=== PATIENT | female | born 1965 | race African-American/Black ===

== ENCOUNTER 2017-05-13 01:20 | Observation (INO) | payer OTHER ==
[2017-05-13] MEDS ORDERED: Furosemide IV* 10 MG/ML VIAL (40 MG) IV ONE (01:52)
[2017-05-13] MEDS ORDERED: Nitroglycerin 2% OINT* 1 GM PAK TOPICAL ONE (01:53)
[2017-05-13 03:06] LABS: Hematocrit 38 % (35-47); Hemoglobin 13.2 g/dl (12.0-16.0); Mean Corpuscular HGB Conc 35 g/dl (31-36); Mean Corpuscular Hemoglobin 29 pg (27-31); Mean Corpuscular Volume 84 fL (80-97); Mean Platelet Volume 8 um3 (7.4-10.4); Red Blood Count 4.55 10^6/ul (4.0-5.4); Red Cell Distribution Width 14 % (10.5-15); White Blood Count 5.3 10^3/ul (3.5-10.8)
[2017-05-13 03:33] LABS: Albumin 3.1 g/dL (3.2-5.2); BUN/Creatinine Ratio 21.4 (8-20); Calcium 8.6 mg/dL (8.6-10.3); EGFR African American 71.8 (>60); EGFR Non-African American 55.8 (>60); Globulin 2.6 g/dL (2-4); Potassium 3.8 mmol/L (3.5-5.0); Total Bilirubin 0.6 mg/dL (0.2-1.0); Total Protein 5.7 g/dL (6.4-8.9)
[2017-05-13 03:34] LABS: Troponin I 0.04 ng/mL (<0.04)
[2017-05-13] MEDS ORDERED: amLODIPine TAB* 5 MG PO ONE (03:40)
[2017-05-13] MEDS ORDERED: hydrALAZINE IV* 20 MG/ML VIAL IV SLOW PU PRN (03:40)
[2017-05-13] MEDS ORDERED: Metoprolol Tartrate TAB* 50 mg PO ONE (03:40)
[2017-05-13] MEDS ORDERED: Albuterol HFA INHALER* 8 gm MDI INH PRN (03:42)
[2017-05-13] MEDS: Nitroglycerin 2% OINT* 1 GM PAK TOPICAL SCH ×2 (05:22→15:26)
[2017-05-13] MEDS: Heparin VIAL(*) 5000 UNITS/ML VIAL (FIVE THOUSAND) SUBCUT SCH ×3 (05:38→20:02)
--- NOTE | 2017-05-13 06:13 | HP ---
CC: Dr. Muller; Dr. Sawant, Cardiology * HISTORY AND PHYSICAL: DATE OF ADMISSION: 05/13/17 PRIMARY CARE PROVIDER: Dr. Muller. CHIEF COMPLAINT: Shortness of breath. HISTORY OF PRESENT ILLNESS: Delores Cary is a 52-year-old female with history of uncontrolled hypertension and diastolic CHF, as well as EF of 45%, who presents complaining of shortness of breath for 2 days. The patient also complains of paroxysmal nocturnal dyspnea. She states that she is on a cardiac diet. She denies using any caffeine. She states that she uses her blood pressure medications as prescribed. The patient's brain natriuretic peptide is 1600. It appears that her baseline is approximately 1200 or so. Her systolic pressures were in the 200s despite 2 inches of nitroglycerin received in the emergency department. She is going to be placed on observation with a diagnosis of CHF, which is acute diastolic, and uncontrolled hypertension. PAST MEDICAL HISTORY: 1. 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 2. History of mitral valve regurgitation. 3. 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 4. Hypertension. 5. Anemia. 6. History of diastolic CHF with EF of 45% documented on echocardiogram in August of 2016. 7. History of first-degree AV block. 8. Sickle cell trait. MEDICATIONS: Include: 1. Norvasc 10 mg daily. 2. Lopressor 50 mg b.i.d. 3. Hydralazine 50 mg 3 times a day. 4. Hydrochlorothiazide 25 mg daily. 5. Senna 8.6 mg on a p.r.n. basis. 6. Colace 100 mg b.i.d. p.r.n. 7. Albuterol 2 inhalations every 4 hours p.r.n. shortness of breath. ALLERGIES: PENICILLIN causes rash. FAMILY HISTORY: Mother with asthma and hypertension. SOCIAL HISTORY: The patient quit smoking tobacco 9 years ago. She drinks alcohol occasionally. She denies any drug use. She is currently on SSI. Her mother, Adelaida, is her surrogate. The patient lives alone. REVIEW OF SYSTEMS: Please see history of present illness. All the remaining 12 systems were reviewed with the patient and were otherwise negative. PHYSICAL EXAMINATION GENERAL: This is a very pleasant 52-year-old female who is in no acute distress. Alert, awake, and oriented x3. VITAL SIGNS: Blood pressure of 205/95, heart rate of 84 and regular, respiratory rate 18, oxygen saturation 98% on room air, temperature of 97.8. HEENT: Head: Atraumatic, normocephalic. Eyes: Pupils are equal, reactive to light and accommodation. Oropharynx clear. Mucosa moist. NECK: Supple. Positive for JVD bilaterally. No bruit bilaterally. RESPIRATORY: Crackles at bilateral bases, otherwise clear. CARDIOVASCULAR: Regular rate and rhythm with 2/6 systolic ejection murmur on auscultation of the apex. ABDOMEN: Soft, nontender. Bowel sounds present in all 4 quadrants. EXTREMITIES: There is trace pedal edema bilaterally. Pulses +2 bilaterally. There is no clubbing or cyanosis. NEURO: Speech clear. Cranial nerves II through XII grossly intact. Motor strength is 5/5 bilaterally. SKIN: No ecchymotic areas or rashes noted. DIAGNOSTIC STUDIES/LAB DATA: Performed in the emergency room included: Chest x-ray reviewed by myself shows cardiomegaly and vascular congestion. No infiltrates visualized. The patient's EKG showed normal sinus rhythm with heart rate of 76 beats per minute with left atrial enlargement and LVH criteria, as well as first-degree AV block. Comparing with an EKG from over a year ago, on 05/11/16, the patient' s heart rate was at that point slow, but her diffuse negative T waves noted on today's echocardiogram are unchanged. Sodium was 139, potassium 3.8, chloride 110, carbon dioxide 22, BUN 22, creatinine 1.03. Liver function tests were unremarkable. Troponin was 0.04. Brain natriuretic peptide was 1674. White blood cell count of 5.3, hemoglobin 13.2, hematocrit of 38, and platelets of 205. ASSESSMENT AND PLAN: 1. A 52-year-old female with history of uncontrolled hypertension, who presents with uncontrolled hypertension, again in congestive heart failure due to that. The patient is going to be admitted with a diagnosis of diastolic congestive heart failure due to hypertensive emergency. The patient is going to be placed on observation on telemetry monitored bed. She would use 40 mg of IV Lasix and she is going to receive another 20. Daily weights due to her congestive heart failure are going to be obtained. I will treat the patient with oral medications as well as nitroglycerin. She is going to receive an additional dose of metoprolol, Norvasc, and placed on hydralazine intravenously on a p.r.n. basis. 2. The patient's indeterminate troponin is most likely due to left ventricular strain. The patient denies chest pain. We will follow up with repeat troponin. 3. For the patient's asthma, which is not in exacerbation, albuterol is going to be provided on an as needed basis. 4. For DVT prophylaxis, the patient is at moderate risk for DVT and heparin is going to be provided. 5. The patient's code status is full and her surrogate is her mother. TIME SPENT: Approximately 62 minutes was spent on admission of this patient. More than half of that time was spent [id number] with the patient during the interview and physical exam. [id number]/[facility] #: [id number] MALIK
[2017-05-13] MEDS: Metoprolol Tartrate TAB* 50 mg PO SCH ×2 (08:51→20:02)
[2017-05-13] MEDS: Docusate CAP* 100 MG PO SCH ×2 (08:51→20:03)
[2017-05-13] MEDS: amLODIPine TAB* 5 MG PO SCH (08:51)
[2017-05-13] MEDS: hydrALAZINE TAB* 25 MG PO SCH ×2 (08:51→20:03)
[2017-05-13] MEDS: Hydrochlorothiazide TAB* 25 MG PO SCH (08:51)
[2017-05-13] MEDS ORDERED: Furosemide IV* 10 MG/ML 2 ML VIAL (20 MG) IV ONE (09:00)
--- NOTE | 2017-05-13 13:01 | RAD ---
INDICATION: Short of breath COMPARISON: May 11, 2016 TECHNIQUE: PA and lateral dual-energy views were obtained. FINDINGS: Bones/Soft Tissues: There are no acute bony findings. There is sternotomy Cardiomediastinal: The cardiac silhouette remains enlarged. There is mild interstitial prominence likely related to interstitial edema Lungs: There are no infiltrates. Pleura: There are no pleural effusions. Other: None IMPRESSION: ENLARGED CARDIAC SILHOUETTE WITH SUSPECTED MILD INTERSTITIAL EDEMA
[2017-05-13] MEDS: Acetaminophen TAB* 325 MG PO PRN ×2 (14:45→20:03)
[2017-05-13 16:06] LABS: BUN/Creatinine Ratio 18.3 (8-20); Calcium 9.3 mg/dL (8.6-10.3); EGFR African American 63.2 (>60); EGFR Non-African American 49.2 (>60); Potassium 3.5 mmol/L (3.5-5.0)
--- NOTE | 2017-05-13 16:50 | PN ---
Hospitalist Progress Note Date of Service: 05/13/17 HOSPITALIST ADDENDUM Mrs. Cary is a 52yo F with PMH of malignant HTN, aortic dissection and repair in 2008, TIA, hemorrhagic CVA, HTN, diastolic CHF with EF 55-60% in 2016, sickle cell trait, who presented to ED with c/o shortness of breath, found to have CHF exacerbation and hypertensive emergency. BP is better controlled today and she's responding to diuresis. Continue current management. Will check echo.
[2017-05-13] MEDS: Potassium Chlor TAB* 20 MEQ TAB.ER PO SCH ×2 (17:26→20:02)
[2017-05-14] MEDS: Nitroglycerin 2% OINT* 1 GM PAK TOPICAL SCH (06:26)
[2017-05-14 06:33] LABS: Hematocrit 43 % (35-47); Hemoglobin 15.1 g/dl (12.0-16.0); Mean Corpuscular HGB Conc 35 g/dl (31-36); Mean Corpuscular Hemoglobin 29 pg (27-31); Mean Corpuscular Volume 84 fL (80-97); Mean Platelet Volume 8 um3 (7.4-10.4); Red Blood Count 5.15 10^6/ul (4.0-5.4); Red Cell Distribution Width 14 % (10.5-15); White Blood Count 5.9 10^3/ul (3.5-10.8)
[2017-05-14] MEDS: Heparin VIAL(*) 5000 UNITS/ML VIAL (FIVE THOUSAND) SUBCUT SCH (06:38)
[2017-05-14 06:47] LABS: BUN/Creatinine Ratio 17.6 (8-20); Calcium 9.1 mg/dL (8.6-10.3); EGFR Non-African American 52.9 (>60); Potassium 4.2 mmol/L (3.5-5.0)
[2017-05-14 07:25] VITALS: BP 171/73
[2017-05-14] MEDS: Hydrochlorothiazide TAB* 25 MG PO SCH (09:43)
[2017-05-14] MEDS: amLODIPine TAB* 5 MG PO SCH (09:43)
[2017-05-14] MEDS: hydrALAZINE TAB* 25 MG PO SCH (09:43)
[2017-05-14] MEDS: Metoprolol Tartrate TAB* 50 mg PO SCH (09:44)
[2017-05-14] MEDS: Docusate CAP* 100 MG PO SCH (09:47)
--- NOTE | 2017-05-14 10:13 | ECHO ---
Patient: TREVON WILKS [facility] Rec#: [id number] : 1965 Date: 05/14/2017 Age: 52y Height: 162.6 cm / 64.0 in Weight: 66.7 kg / 147.0 lbs Sex: F BSA: 1.72 Room#: 453 Admit Date#: 05/13/2017 Type: Inpatient Referring: Sabina Sauceda MD Reading: Baldomero Shrestha MD [employer]oultry [employer] Manager: Eneida Kunz RN RDCS CC: Alex Sawant MD CC: Virgil Muller MD Transthoracic Echocardiogram Indication: CHF BP: 175/69 HR: 66 Rhythm: NSR Findings History: Malignant HTN, aortic arch dissection S/P repair 2008, diastolic CHF, CVA, TIA, asthma, former smoker Technical Comments: The study quality is good. Completed at 0935. Left Ventricle: The left ventricular chamber size is mildly dilated. Moderate to severe concentric left ventricular hypertrophy is observed. There is diffuse global hypokinesis of the left ventricle. There is mildly decreased left ventricular systolic function. The estimated ejection fraction is 45-50%. Abnormal left ventricular diastolic function is observed. The left ventricular diastolic filling pattern is consistent with pseudonormalization. The patient was unable to perform a Valsalva maneuver. Left Atrium: The left atrium is severely dilated. Right Ventricle: The right ventricle wall thickness is mildly increased. The right ventricular cavity size is normal. The right ventricular global systolic function is mildly to moderately reduced. Right Atrium: The right atrium is moderately dilated. Aortic Valve: The aortic valve is trileaflet. The aortic valve leaflets are mildly thickened. There is aortic annular calcification. There is moderate to severe aortic regurgitation. Reversal in the aorta c/w severe AI. There is mild aortic stenosis. The mean gradient of the aortic valve is 10.3 mmHg. The peak instantaneous gradient of the aortic valve is 20 mmHg. The aortic valve area, by peak velocities, is calculated at 1.7 cm2. The aortic valve area, by VTI's, is calculated at 1.8 cm2. The measured aortic regurgitation pressure half-time is 295 msec. Mitral Valve: The mitral valve leaflets are mildly thickened. There is moderate mitral regurgitation. There is no evidence of mitral stenosis. Tricuspid Valve: The tricuspid valve leaflets are normal. There is trace to mild tricuspid regurgitation. No pulmonary hypertension is noted. There is no tricuspid stenosis. Pulmonic Valve: The pulmonic valve appears normal. There is a trace pulmonic regurgitation. There is no pulmonic stenosis. Pericardium: There is no significant pericardial effusion. Aorta: There is no dilatation of the ascending aorta. There is no dilatation of the aortic arch. There is no dilation of the aortic root. Pulmonary Artery: The main pulmonary artery appears normal. Venous: The inferior vena cava appears normal in size. There is a greater than 50% respiratory change in the inferior vena cava dimension. Conclusions The left ventricular chamber size is mildly dilated. Moderate to severe concentric left ventricular hypertrophy is observed. There is diffuse global hypokinesis of the left ventricle. There is mildly decreased left ventricular systolic function. The estimated ejection fraction is 45-50%. The left ventricular diastolic filling pattern is consistent with pseudonormalization. The right ventricle wall thickness is mildly increased. The right ventricular global systolic function is mildly to moderately reduced. The right atrium is moderately dilated. The aortic valve leaflets are mildly thickened. There is moderate to severe aortic regurgitation. Reversal in the aorta c/w severe AI. There is mild aortic stenosis. There is moderate mitral regurgitation. There is trace to mild tricuspid regurgitation. Similar to 08/2016 except that the AI was reported as moderate (with similar doppler valvues). Measurements Name Value Normal Range RVIDd (AP) 2D 2.3 cm (0.9 - 2.6) RVDdMajor (2D) 3 cm (2.2 - 4.4) IVSd (2D) 1.9 cm (0.6 - 1) LVPWd (2D) 1.9 cm (0.6 - 1) LVIDd (2D) 5.9 cm (3.6 - 5.4) LVIDs (2D) 4.5 cm - LV FS (2D) 24 % (25 - 45) Aortic Annulus 2.2 cm (1.4 - 2.6) Ao root diameter (2D) 3.1 cm (2.1 - 3.5) Ascending Ao 3.1 cm (2.1 - 3.4) Aortic arch 2.2 cm (1.8 - 3.4) LA dimension (AP) 2D 4.2 cm (2.3 - 3.8) LAd ISD 4CH 7.5 cm (2.9 - 5.3) LA ISD 4CH W 5 cm (2.5 - 4.5) Name Value Normal Range LA ESV SP 4CH (A/L) 104 ml - LA ESV SP 2CH (A/L) 94 ml - LA ESV BP (A/L) 102 ml - LA ESV BP (A/L) index 60 ml/m2 - LA ESV SP 4CH (MOD) 99 ml - LA ESV SP 2CH (MOD) 92 ml - Name Value Normal Range MV E-wave Vmax 1 m/sec - MV deceleration time 252 msec - MV A-wave Vmax 0.46 m/sec - MV E:A ratio 2.2 ratio - LV septal e' Vmax 0.04 m/sec - LV lateral e' Vmax 0.09 m/sec - LV E:e' septal ratio 25 ratio - LV E:e' lateral ratio 11.1 ratio - Name Value Normal Range AV Vmax 2.2 m/sec - AV VTI 42.8 cm - AV peak gradient 20 mmHg - AV mean gradient 10.3 mmHg - LVOT diameter 2 cm - LVOT Vmax 1.2 m/sec - LVOT VTI 24.3 cm - LVOT peak gradient 5.8 mmHg - LVOT mean gradient 3 mmHg - DOI (VTI) 0.57 ratio - DOI (Vmax) 0.55 ratio - SV LVOT 76.3 ml - CO LVOT 5 l/min - Cardiac index 2.9 l/min/m2 - GIA (continuity Vmax) 1.7 cm2 - GIA (continuity VTI) 1.8 cm2 - AR PHT 295 msec - MARINA Vmax 1.2 m/sec - Name Value Normal Range MR Vmax 5.71 m/sec - MR VTI 228.5 cm - MR volume (PISA) 52.6 ml - MR flow (PISA) 128.6 ml/sec - MR ERO 0.23 cm2 - MR PISA radius 0.8 cm - MR alias Vmax 32 cm/sec - Name Value Normal Range TR Vmax 2.5 m/sec - TR peak gradient 25 mmHg - RAP 3 mmHg - RVSP 28 mmHg - Name Value Normal Range PV Vmax 0.85 m/sec -
--- NOTE | 2017-05-15 05:53 | DS ---
CC: Dr. Muller; Dr. Sawant DISCHARGE SUMMARY: DATE OF ADMISSION: 05/13/17 DATE OF DISCHARGE: 05/14/17 PRIMARY CARE PROVIDER: Dr. Muller. ASSEMBLER UTILITY BUILDINGS: Dr. Sawant. DISCHARGE DIAGNOSES: 1. Hypertensive emergency. 2. Acute diastolic congestive heart failure exacerbation. 3. Possible noncompliance. 4. Chronic kidney disease, stage 3. SECONDARY DIAGNOSES: 1. Malignant hypertension. 2. Status post aortic arch dissection and repair in 2008. 3. Mitral valve regurgitation. 4. Transient ischemic attack. 5. Hemorrhagic cerebrovascular accident. 6. Anemia. 7. Diastolic congestive heart failure with ejection fraction of 45%. 8. Sickle cell trait. MEDICATION LIST: 1. Amlodipine 10 mg p.o. daily. 2. Hydralazine 75 mg p.o. in the morning and 50 mg p.o. at bedtime. 3. Losartan 50 mg p.o. daily. 4. Metoprolol tartrate 100 mg p.o. b.i.d. 5. Triamterene/hydrochlorothiazide 37.5/25 mg 1 capsule p.o. daily. HOSPITAL COURSE: Ms. Cary is a 52-year-old lady with past medical history stated above that presen antonio to the emergency room with complaints of shortness of breath for 2 days prior to admission, assoc iated with paroxysmal nocturnal dyspnea. For more details about her presentation, I refer you to her history and physical. On arrival to the emergency room, her blood pressure was 208/95 and her chest x-ray showed enlarged c ardiac silhouette with mild interstitial edema. The patient was admitted to telemetry floor under the impression of hypertensive emergency and conges tive heart failure exacerbation. She was treated with diuretics, nitrates, and her antihypertensives were continued. She had minimally elevated troponin (0.04/0.05) and this was felt to be secondary t o congestive heart failure exacerbation. The patient had a transthoracic echocardiogram that showed the ejection fraction of 45% to 50% with diffuse global hypokinesis of the left ventricle and moderat e-to-severe aortic regurgitation. The only change on this echo when compared to her prior one from [facility] is that at that time the aortic regurgitation was reported as moderate. The patient had improvement of her symptoms. Her blood pressure is better controlled and she is stab le for discharge at this time. Her pharmacy was contacted to obtain her medication list and we were informed that the patient has no t picked up her medications since January, but when I asked the patient she states that her medicat ions were delivered and she has been taking them all. Her PCP should continue to explore her complia nce as I believe she is probably noncompliant and that was the cause of her symptoms on admission. Al though she states that she is taking all her meds, she was not able to tell me the name of any of the m. She is medically stable to be discharged home today. She will follow up with Dr. Muller as tremaine nt. PHYSICAL EXAMINATION: Vital Signs: Temperature 98.6, heart rate is 64, respiratory rate is 16, oxyg en saturation is 97% on room air, blood pressure is 161/74. General: The patient is a pleasant, mid dle-aged lady, lying in bed, in no acute distress. CVS: Normal S1 and S2. Regular rate and rhythm with systolic murmur. Abdomen: Soft. Bowel sounds present. Neuro: She is alert, awake, and orien antonio x3, able to move all 4 extremities. DIET: Heart-healthy diet. ACTIVITY: As tolerated. DISPOSITION: To home. STATUS IN THE HOSPITAL: Observation. Please keep in mind this is a summarized version of this [facility] hospital stay. If you need more information, please feel free to call me at [phone] or pleas e obtain the full medical records. TIME SPENT: Approximately 45 minutes was spent to complete the discharge. [id number]/[facility] #: [id number]
--- NOTE | 2017-05-24 03:00 | ED ---
Eligio Newberry Gabriel, scriblluvia for Lalo Fuentes MD on 05/13/17 at 0152 . Shortness of Breath - HPI Summary HPI Summary: This patient is a 52 year old F BIBA to [facility] with a chief complaint of SOB since 3 days prior. Symptoms aggravated by lying flat. Patient has a history of CHF. - History of Current Complaint Chief Complaint: EDShortnessOfBreath Time Seen by Provider: 05/13/17 01:30 Hx Obtained From: Patient Onset/Duration: Lasting Days - 3, Still Present Timing: Constant Aggrevating Factors: Other - lying flat - Allergy/Home Medications Allergies/Adverse Reactions: Allergies Allergy/AdvReac Type Severity Reaction Status Date / Time Penicillin V Allergy Intermediate Rash Verified 05/13/17 04:18 Home Medications: Home Medications Losartan TAB* [Cozaar TAB*] 50 mg PO DAILY 05/14/17 [History Confirmed 05/14/17] Metoprolol Tartrate TAB* [Lopressor TAB*] 100 mg PO BID 05/14/17 [History Confirmed 05/14/17] Triamterene/HCTZ 37.5-25 MG* [Dyazide CAP*] 1 cap PO DAILY 05/14/17 [History Confirmed 05/14/17] amLODIPine TAB* [Norvasc 5 mg TAB*] 10 mg PO DAILY 05/14/17 [History Confirmed 05/14/17] hydrALAZINE TAB* [Apresoline TAB*] 75 mg PO DAILY 05/14/17 [History Confirmed ] PMH/Surg Hx/FS Hx/Imm Hx Previously Healthy: No Endocrine/Hematology History: Reports: Hx Anemia - in [employer] Denies: Hx Diabetes, Hx Unexplained Bleeding Cardiovascular History: Reports: Hx Aneurysm, Hx Hypertension, Other Cardiovascular Problems/Disorders - Aortic dissectionw/ repair ([place]), aortic & Mitral valve insuff Denies: Hx Angina, Hx Angioplasty, Hx Auto Implanted Cardiovert Defib, Hx Cardiac Arrest, Hx Cardiomegaly, Hx Congenital Heart Disease, Hx Congestive Heart Failure, Hx Coronary Artery Disease, Hx Deep Vein Thrombosis, Hx Hypercholesterolemia, Hx Hypotension, Hx Pacemaker/ICD, Hx Peripheral Vascular Disease, Hx Rheumatic Fever, Hx Syncope, Hx Valvular Heart Disease Respiratory History: Reports: Hx Asthma Denies: Other Respiratory Problems/Disorders History: Denies: Hx Renal Disease Sensory History: Reports: Hx Contacts or Glasses, Hx Vision Problem Denies: Hx Cataracts, Hx Eye Injury, Hx Eye Prosthesis, Hx Glaucoma, Hx Macular Degeneration, Hx Deafness, Hx Hearing Aid, Hx Hearing Problem, Other Sensory Impairments Opthamlomology History: Reports: Hx Contacts or Glasses, Hx Vision Problem Denies: Hx Cataracts, Hx Eye Injury, Hx Eye Prosthesis, Hx Glaucoma, Hx Macular Degeneration, Other Sensory Impairments Neurological History: Reports: Hx Transient Ischemic Attacks (TIA), Other Neuro Impairments/Disorders - Pt to ED via EMS w/ altered mental status Denies: Hx Dementia, Hx Developmental Delay, Hx Headaches, Hx Migraine, Hx Seizures, Hx Spinal Cord Injury - Surgical History Surgery Procedure, Year, and Place: Aortic Surgery 2008 Hx Anesthesia Reactions: No - Immunization History Date of Tetanus Vaccine: Unk Date of Influenza Vaccine: Fall 2013 Infectious Disease History: No Infectious Disease History: Denies: Traveled Outside the [place] in Last 30 Days - Family History Known Family History: Positive: Hypertension, Other - CVA Negative: Cardiac Disease - Social History Alcohol Use: Occasionally Hx Substance Use: No Substance Use Type: Reports: None Hx Tobacco Use: Yes Smoking Status (MU): Former Smoker Type: Cigarettes Amount Used/How Often: 1 pack per week Length of Time of Smoking/Using Tobacco: 25 Have You Smoked in the Last Year: No Review of Systems Negative: Fever Positive: Shortness Of Breath All Other Systems Reviewed And Are Negative: Yes Physical Exam - Summary Physical Exam Summary: VITAL SIGNS: Reviewed. GENERAL: Patient is a well-developed and nourished female who is lying comfortable in the stretcher. Patient is not in any acute respiratory distress. HEAD AND FACE: No signs of trauma. No ecchymosis, hematomas or skull depressions. No sinus tenderness. EYES: PERRLA, EOMI x 2, No injected conjunctiva, no nystagmus. EARS: Hearing grossly intact. Ear canals and tympanic membranes are within normal limits. MOUTH: Oropharynx within normal limits. NECK: Supple, trachea is midline, no adenopathy, no JVD, no carotid bruit, no c- spine tenderness, neck with full ROM. CHEST: Symmetric, no tenderness at palpation LUNGS: Clear to auscultation bilaterally. No wheezing or crackles. Bilateral bronchial breahting CVS: Regular rate and rhythm, S1 and S2 present, no murmurs or gallops appreciated. ABDOMEN: Soft, non-tender. No signs of distention. No rebound no guarding, and no masses palpated. Bowel sounds are normal. EXTREMITIES: FROM in all major joints, trace bilateral edema, no cyanosis or clubbing. NEURO: Alert and oriented x 3. No acute neurological deficits. Speech is normal and follows commands. SKIN: Dry and warm Triage Information Reviewed: Yes Vital Signs On Initial Exam: Initial Vitals Temp Pulse Resp BP Pulse Ox 97.8 F 84 18 208/95 98 05/13/17 01:27 05/13/17 01:27 05/13/17 01:27 05/13/17 01:27 05/13/17 01:27 Vital Signs Reviewed: Yes - Kevin Coma Scale Coma Scale Total: 15 Diagnostics - Vital Signs Vital Signs Temp Pulse Resp BP Pulse Ox 05/13/17 01:40 20 05/13/17 01:27 97.8 F 84 18 208/95 98 - Laboratory Result Diagrams: 05/14/17 06:25 05/14/17 06:25 Lab Statement: Any lab studies that have been ordered have been reviewed, and results considered in the medical decision making process. - Radiology CXR Radiology Interpretation Completed By: Radiologist Course/Dx - Course Assessment/Plan: This patient is a 52 year old F BIBA to [facility] with a chief complaint of SOB since 3 days prior. Symptoms aggravated by lying flat. CXR reveals, per radiologist, ENLARGED CARDIAC SILHOUETTE WITH SUSPECTED MILD INTERSTITIAL EDEMA. Test results with no significant abnormalities except for 2 Trops on at .04 and the other at .05. In the ED course the patient was given NTG, Lopressor, Hydrodiuril, Heparin, and Lasikx. We discussed patient care with Dr. Vincent, hospitalist and they accepted the patient for admission. Patient will be admitted for CHF and follow up from Dr. Vincent. The patient is agreeable with this plan. - Diagnoses Provider Diagnoses: CHF (congestive heart failure) - Physician Notifications Discussed Care of Patient With: Sabina Vincent Instructed by Provider To: Admit As Inpatient Discharge - Discharge Plan Condition: Fair Disposition: ADMITTED TO [facility] documentation as recorded by the Eligio sylvester Gabriel accurately reflects the service I personally performed and the decisions made by , Lalo Fuentes MD.
== END 2017-05-14 12:00 | disposition home or self-care (01) ==
LOC: ED 01:20 → MEDTELE 03:39
PROVIDERS: ADMIT Internal Medicine; ATTEND Internal Medicine
DX: I62.9 Nontraumatic intracranial hemorrhage, unspecified (principal); I12.9 Hypertensive chronic kidney disease with stage 1 through stage 4 chronic kidney disease, or unspecified chronic kidney disease; N18.3 Chronic kidney disease, stage 3 (moderate); Z88.0 Allergy status to penicillin; Z87.891 Personal history of nicotine dependence; I50.31 Acute diastolic (congestive) heart failure; I34.0 Nonrheumatic mitral (valve) insufficiency; D64.9 Anemia, unspecified; D57.3 Sickle-cell trait
CPT/HCPCS: 36415; 71020; 80048; 80053; 83605; 83880; 84484; 85025; 85610; 85730; 93005; 93306; 96374; 96375; 96376; 99283; A9270-GY; G0378; J0360; J1644; J1940

== ENCOUNTER 2018-03-08 16:46 | Emergency (ER) | payer OTHER ==
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
[2018-03-08] MEDS ORDERED: Acetaminophen TAB* 325 MG PO ONE (17:21)
[2018-03-08 17:26] VITALS: BP 172/74
== END 2018-03-08 17:25 | disposition home or self-care (01) ==
LOC: ED 16:46
DX: S09.90XA Unspecified injury of head, initial encounter (principal); R51 Headache; V49.9XXA Car occupant (driver) (passenger) injured in unspecified traffic accident, initial encounter; Y92.9 Unspecified place or not applicable; Z87.891 Personal history of nicotine dependence; I10 Essential (primary) hypertension
CPT/HCPCS: 99282; A9270-GY

== ENCOUNTER 2019-05-21 11:49 | Observation (INO) | payer OTHER ==
--- NOTE | 2019-05-21 11:56 | ED ---
Shortness of Breath - HPI Summary HPI Summary: 54 year old F arriving via ambulance from home where she lives alone complains of worsening shortness of breath since moving in to her apartment in Jan 2019. Patient was told there were asbestos in her apartment building after she moved in. She has persistently been short of breath since then. Has not been seen by primary care provider Dr. Muller because difficult to get to his office. Today 05/21, patient felt she was unable to breathe and called EMS. No other complaints. No pain, fever, vomiting/diarrhea, rash. EMS reports hypertensive BP 220/102. Hx HTN. Patient hasn't been taking hydralazine, amlodipine, and metoprolol, lisinopril as prescribed for 2 days because she was afraid of choking. No recent fall/trauma/sickness. Pain rated 0/10 in severity. Symptoms aggravated by nothing. Symptoms alleviated by nothing. Medications reviewed. Allergies noted. Surgical hx aneurysm removed 2008. No alcohol, recreational drugs, or smoking. - History of Current Complaint Hx Obtained From: Patient, EMS Onset/Duration: Still Present, Other - 4 months Timing: Constant Current Severity: None Aggravating Factors: Nothing Alleviating Factors: Nothing - Allergy/Home Medications Allergies/Adverse Reactions: Allergies Allergy/AdvReac Type Severity Reaction Status Date / Time penicillin V Allergy Rash Verified 05/21/19 11:58 PMH/Surg Hx/FS Hx/Imm Hx Endocrine/Hematology History: Reports: Hx Anemia - in [employer] Denies: Hx Diabetes, Hx Unexplained Bleeding Cardiovascular History: Reports: Hx Aneurysm, Hx Hypertension, Other Cardiovascular Problems/Disorders - Aortic dissectionw/ repair (Snow), aortic & Mitral valve insuff Denies: Hx Angina, Hx Angioplasty, Hx Auto Implanted Cardiovert Defib, Hx Cardiac Arrest, Hx Cardiomegaly, Hx Congenital Heart Disease, Hx Congestive Heart Failure, Hx Coronary Artery Disease, Hx Deep Vein Thrombosis, Hx Hypercholesterolemia, Hx Hypotension, Hx Pacemaker/ICD, Hx Peripheral Vascular Disease, Hx Rheumatic Fever, Hx Syncope, Hx Valvular Heart Disease Respiratory History: Reports: Hx Asthma Denies: Other Respiratory Problems/Disorders History: Denies: Hx Renal Disease Sensory History: Reports: Hx Contacts or Glasses, Hx Vision Problem Denies: Hx Cataracts, Hx Eye Injury, Hx Eye Prosthesis, Hx Glaucoma, Hx Macular Degeneration, Hx Deafness, Hx Hearing Aid, Hx Hearing Problem, Other Sensory Impairments Opthamlomology History: Reports: Hx Contacts or Glasses, Hx Vision Problem Denies: Hx Cataracts, Hx Eye Injury, Hx Eye Prosthesis, Hx Glaucoma, Hx Macular Degeneration, Other Sensory Impairments Neurological History: Reports: Hx Transient Ischemic Attacks (TIA), Other Neuro Impairments/Disorders - Pt to ED via EMS w/ altered mental status Denies: Hx Dementia, Hx Developmental Delay, Hx Headaches, Hx Migraine, Hx Seizures, Hx Spinal Cord Injury - Surgical History Surgery Procedure, Year, and Place: Aortic Surgery 2008 at [facility] Anesthesia Reactions: No - Immunization History Date of Tetanus Vaccine: Unk Date of Influenza Vaccine: Fall 2013 - Family History Known Family History: Positive: Hypertension, Other - CVA Negative: Cardiac Disease - Social History Alcohol Use: None Hx Substance Use: No Substance Use Type: Reports: None Hx Tobacco Use: Yes Smoking Status (MU): Former Smoker Type: Cigarettes Amount Used/How Often: 1 pack per week Length of Time of Smoking/Using Tobacco: 25 Have You Smoked in the Last Year: No Review of Systems Negative: Fever Positive: Shortness Of Breath Negative: Vomiting, Diarrhea Negative: Rash All Other Systems Reviewed And Are Negative: Yes Physical Exam - Summary Physical Exam Summary: Constitutional: Well-developed, Well-nourished, Alert. (-) Distressed. Tachypneic but well-appearing. Skin: Warm, Dry HENT: Normocephalic; Atraumatic Eyes: Conjunctiva normal Neck: Musculoskeletal ROM normal neck. (-) JVD, (-) Stridor, (-) Tracheal deviation Cardio: Rhythm regular, rate normal, Heart sounds normal; Intact distal pulses; Radial pulses are 2+ and symmetric. (-) Murmur Pulmonary/Chest wall: Effort normal. (-) Respiratory distress, (-) Wheezes, (-) Rales Abd: Soft, (-) tenderness, (-) Distension, (-) Guarding, (-) Rebound Musculoskeletal: (-) Edema Lymph: (-) Cervical adenopathy Neuro: Alert, Oriented x3 Psych: Mood and affect Normal Triage Information Reviewed: Yes Vital Signs Reviewed: Yes Procedures - Sedation Patient Received Moderate/Deep Sedation with Procedure: No Diagnostics - Laboratory Result Diagrams: 05/21/19 12:02 05/21/19 12:02 Lab Statement: Any lab studies that have been ordered have been reviewed, and results considered in the medical decision making process. - Radiology CXR Radiology Interpretation Completed By: Radiologist Summary of Radiographic Findings: CARDIOMEGALY. ED PHYSICIAN HAS REVIEWED THIS REPORT. - CT Chest/Abd/Pel CTA CT Interpretation Completed By: Radiologist Summary of CT Findings: 1. NO PULMONARY ARTERY FILLING DEFECT TO SUGGEST PULMONARY EMBOLISM. 2. POSTSURGICAL CHANGE TO THE AORTA. NO INTIMAL FLAP TO SUGGEST DISSECTION. 3. ATHEROMATOUS DISEASE. 4. SMALL BILATERAL PLEURAL EFFUSIONS. 5. CARDIOMEGALY. 6. FIBROID UTERUS. 7. TRACE AMOUNT OF FLUID WITHIN THE PELVIS. ED PHYSICIAN HAS REVIEWED THIS REPORT. - EKG 1159 Cardiac Rate: NL - 81 BPM EKG Rhythm: Sinus Rhythm Summary of EKG Findings: LVH criteria met. She has ST depressions with T wave inversions in V5 and V6. She has T wave inversions in 1 and aVL. She has slight ST elevations in V1-V4. These are all unchanged from 05/13/17. ED PHYSICIAN HAS REVIEWED AND INTERPRETED THIS EKG. Re-Evaluation - Re-Evaluation First Eval Re-Evaluation Time: 12:30 Change: Improved Comment: Blood pressure improved 198 systolic. She feels slightly better after NTG x1 Second Eval Re-Evaluation Time: 14:13 Change: Worse Comment: BP 180 systolic. patient got up and walked to bathroom. when she returned, BP 204 systolic. will give another dose of labetalol Course/Dx - Course Course Of Treatment: Patient is here with shortness of breath since January and inability to lie flat. Patient has poorly controlled hypertension and has had multiple end organ damage episodes due to this. Patient was severely hypertensive upon arrival and given her history of CHF, she was given 2 doses of sublingual nitroglycerin which did help her blood pressure and her symptoms. Patient had an EKG which showed no changes from baseline. Patient had a chest x-ray showed cardiomegaly. Patient had blood performed showed a BNP greater than 1300 and an elevated troponin. Patient had a CTA performed which showed no changes to her aortic dissection repair. Patient was then given labetalol 20 mg 2 and nitroglycerin paste improvement in her blood pressure. Patient is admitted to the hospitalist for further management. - Diagnoses Provider Diagnoses: Hypertensive emergency, SOB (shortness of breath), CHF exacerbation, Elevated troponin - Physician Notifications Discussed Care of Patient With: Sandrine Severo Time Discussed With Above Provider: 13:22 Instructed by Provider To: Admit As Inpatient - Critical Care Time Critical Care Time: 30-74 min - 35 Discharge ED - Sign-Out/Discharge Documenting (check all that apply): Patient Departure - Discharge Plan Condition: Stable Disposition: ADMITTED TO [facility] - Billing Disposition and Condition Condition: STABLE Disposition: Admitted to [facility] - Attestation Statements Document Initiated by Joseibe: Yes Documenting Scribe: Kaitlin Pantoja Provider For Whom Dandy is Documenting (Include Credential): Vinod Ann MD Scribe Attestation: Kaitlin Newberry, scribed for Vinod Ann MD on 05/21/19 at 1811. Scribe Documentation Reviewed: Yes Provider Attestation: The documentation as recorded by the scribeKaitlin accurately reflects the service I personally performed and the decisions made by me, Vinod Ann MD Status of Scribe Document: Viewed
[2019-05-21] MEDS: Nitroglycerin TAB 0.4 MG* 0.4 MG TAB SL ONE ×2 (12:02→12:35)
[2019-05-21 12:16] LABS: ABS Basophils 0.1 10^3/ul (0-0.2); ABS Eosinophils 0.1 10^3/ul (0-0.6); ABS Lymphocytes 1.8 10^3/ul (1.0-4.8); ABS Monocytes 0.4 10^3/ul (0-0.8); ABS Neutrophils 2.5 10^3/ul (1.5-7.7); Eosinophil % 1.9 %; Hematocrit 40 % (35-47); Hemoglobin 13.9 g/dL (12.0-16.0); Lymphocyte % 36.6 %; Mean Corpuscular HGB Conc 35 g/dL (31-36); Mean Corpuscular Hemoglobin 29 pg (27-31); Mean Corpuscular Volume 84 fL (80-97); Nucleated Red Blood Cells % 0.5; Platelet Count 204 10^3/uL (150-450); Red Blood Count 4.77 10^6 /uL (3.70-4.87); Red Cell Distribution Width 15 % (10-15); White Blood Count 4.8 10^3/uL (3.5-10.8)
[2019-05-21 12:27] LABS: ALT 33 U/L (7-52); AST 21 U/L (13-39); Albumin 3.6 g/dL (3.2-5.2); Albumin/Globulin Ratio 1.3 (1-3); Alkaline Phosphatase 58 U/L (34-104); Anion Gap 6 mmol/L (2-11); BUN/Creatinine Ratio 22.2 (8-20); Blood Urea Nitrogen 24 mg/dL (6-24); CO2 Carbon Dioxide 26 mmol/L (22-32); Calcium 9.1 mg/dL (8.6-10.3); Chloride 108 mmol/L (101-111); EGFR African American 63.5 (>60); EGFR Non-African American 52.5 (>60); Globulin 2.8 g/dL (2-4); Glucose 112 mg/dL (70-100); Potassium 3.3 mmol/L (3.5-5.0); Sodium 140 mmol/L (135-145); Total Protein 6.4 g/dL (6.4-8.9)
[2019-05-21 12:30] LABS: Troponin I 0.04 ng/mL (<0.03)
[2019-05-21] MEDS ORDERED: Iodixanol* (CONTRAST) 320 MG/ML 100 ML SDV IV ONE (12:30)
[2019-05-21] MEDS ORDERED: Nitro 2% OINT* (Nitroglycerin) 1 INCH/PAK PAK TOPICAL ONE (13:23)
[2019-05-21] MEDS ORDERED: Labetalol IV* 5 MG/ML 20 ML VIAL IV PUSH ONE ×2 (13:23→14:13)
[2019-05-21] MEDS ORDERED: Metoprolol Tartrate TAB* 50 mg PO ONE (14:39)
[2019-05-21] MEDS ORDERED: Al Hydrox/Mg Hydrox/Simet LIQ* 30 ML UDC PO PRN (14:39)
[2019-05-21] MEDS ORDERED: Acetaminophen TAB* 325 MG PO PRN (14:50)
[2019-05-21] MEDS ORDERED: Furosemide IV* 10 MG/ML 2 ML VIAL (20 MG) IV ONE (14:54)
[2019-05-21] MEDS: Triamterene/HCTZ 37.5-25 MG* CAP PO SCH (15:08)
[2019-05-21] MEDS: amLODIPine TAB* 5 MG PO SCH (15:09)
[2019-05-21] MEDS: Losartan TAB* 25 MG PO SCH (15:10)
[2019-05-21 15:32] LABS: Troponin I 0.04 ng/mL (<0.03)
--- NOTE | 2019-05-21 16:07 | HP ---
CC: Dr. Muller; Dr. Sawant* HISTORY AND PHYSICAL: DATE OF ADMISSION: 05/21/19 PRIMARY CARE PROVIDER: Dr. Muller. GAMEPLAY ENGINEER: Dr. Sawant. CHIEF COMPLAINT: Shortness of breath. HISTORY OF PRESENT ILLNESS: Mrs. aCry is a 54-year-old female with history of chronic diastolic CHF and chronically uncontrolled hypertension who presented to the hospital complaining of shortness of breath and hypertension. The patient stated that she stopped taking her medications 3 days ago and she started developing shortness of breath. Her systolic pressures were in the 220s when she arrived to the ED. She received 20 mg of labetalol and her pressures are in the 170s right now. Currently, her shortness of breath resolved. The patient denies any chest pain. She is going to be placed on overnight observation with a diagnosis of uncontrolled hypertension. PAST MEDICAL HISTORY: 1. 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 2. History of mitral valve regurgitation. 3. 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 4. Hypertension. 5. Anemia. 6. History of chronic diastolic CHF with an EF of 45% in 2017. 7. First-degree AV block. 8. Sickle cell trait. MEDICATIONS AT HOME: Include: 1. Norvasc 10 mg daily. 2. Dyazide 37.5/25 one tablet daily. 3. Metoprolol tartrate 100 mg b.i.d. 4. Losartan 50 mg daily. ALLERGIES: PENICILLIN causes rash. FAMILY HISTORY: Mother with asthma and hypertension. SOCIAL HISTORY: The patient quit smoking approximately 11 years ago. She drinks alcohol rarely. She denies any drug use. She currently is on SSI and lives by herself. Her mother is listed as her surrogate. REVIEW OF SYSTEMS: Please see history of present illness. All the remaining 12 systems were reviewed with the patient and were otherwise negative. PHYSICAL EXAMINATION GENERAL: The patient is a very pleasant 54-year-old female who is in no acute distress, alert, awake, and oriented x3. VITAL SIGNS: Blood pressure of 188/92, heart rate of 74 and regular, respiratory rate 30, oxygen saturation 96% on room air, temperature of 97.4. HEENT: Head: Atraumatic, normocephalic. Eyes: Pupils are equal and reactive to light and accommodation. Oropharynx is clear. Mucosa moist. NECK: Supple. No JVD. No bruits bilaterally. RESPIRATORY: Clear to auscultation bilaterally. CARDIOVASCULAR: Regular rate and rhythm. No murmur. ABDOMEN: Soft, nontender. Bowel sounds are present in all 4 quadrants. EXTREMITIES: There is no edema. Pulses are +2 bilaterally. No clubbing or cyanosis. NEURO EVALUATION: Speech clear. Cranial nerves II through XII grossly intact. Motor strength is 5/5 bilaterally. SKIN: On evaluation of the skin, no ecchymotic areas or rashes noted. DIAGNOSTIC STUDIES/LAB DATA: White blood cell count of 4.8, hemoglobin of 13.9 , hematocrit of 40, and platelets of 204. Sodium was 140, potassium 3.3, chloride 108, carbon dioxide 26, BUN 24, creatinine 1.08. Liver function test unremarkable apart from bilirubin of 1.1 and troponin of 0.04 which is consistent with the patient's chronic troponins. Brain natriuretic peptide was above 1300. The patient's EKG shows chronic changes consistent with LVH, heart rate of 81 beats per minute. Intraventricular conduction delay. Deep inverted T-waves in the lateral leads consistent with prior. The patient had a chest, abdomen and pelvis CT angiogram obtained on 05/21/19 in the ED, which showed, impression: "No pulmonary arterial filling defect to suggest pulmonary embolism. Postsurgical change to the aorta with no intimal flap to suggest dissection. Atheromatous disease. Small bilateral pleural effusions. Cardiomegaly. Fibroid uterus. Trace amount of fluid in the pelvis. " ASSESSMENT AND PLAN: 1. Uncontrolled hypertension. This was due to medical noncompliance. The patient is going to be placed back on her medications. Hydralazine is going to be used on as needed basis. She is going to be placed on telemetry observed bed. Her troponins are chronically elevated and that is going to be repeated. The patient has no chest pain complaints at admission. 2. The patient's mild chronic renal insufficiency is at baseline. 3. History of aortic dissection in the past. At this point, the patient's CTA ruled out dissection. 4. For the patient's DVT prophylaxis, the patient is going to be placed on full ambulation and otherwise she is at low risk. TIME SPENT: Approximately 63 minutes was spent on admission of this patient, more than half that time was spent [id number] with the patient during the interview and physical exam. [id number] #: [id number] MALIK
[2019-05-21] MEDS: Docusate CAP* 100 MG PO SCH (20:39)
[2019-05-21] MEDS: Metoprolol Tartrate TAB* 50 mg PO SCH (20:39)
[2019-05-21 21:48] LABS: Troponin I 0.04 ng/mL (<0.03)
[2019-05-22 07:39] LABS: Hepatitis C Antibody Negative (Negative)
[2019-05-22] MEDS: Docusate CAP* 100 MG PO SCH (08:04)
[2019-05-22] MEDS: Triamterene/HCTZ 37.5-25 MG* CAP PO SCH (08:04)
[2019-05-22] MEDS: Metoprolol Tartrate TAB* 50 mg PO SCH (08:04)
[2019-05-22] MEDS: Losartan TAB* 25 MG PO SCH (08:04)
[2019-05-22] MEDS: amLODIPine TAB* 5 MG PO SCH (08:04)
[2019-05-22 10:29] VITALS: BP 156/67
--- NOTE | 2019-05-23 02:12 | DS ---
CC: Dr. Virgil Muller; Dr. Alex Sawant* DISCHARGE SUMMARY: DATE OF ADMISSION: 05/21/19 DATE OF DISCHARGE: 05/22/19 PRIMARY CARE PROVIDER: Dr. Virgil Muller. CITY WEIGHMASTER: Dr. Alex Sawant. ATTENDING PHYSICIAN: Dr. Sandrine Elkins* (dictated by Shima Nelson NP). PRIMARY DIAGNOSES: 1. Hypertensive urgency. 2. Demand ischemia. SECONDARY DIAGNOSES: 1. History of hemorrhagic cerebrovascular accident. 2. Hypertension. 3. Anemia. 4. Chronic diastolic congestive heart failure. 5. First degree heart block. 6. Sickle cell trait. STUDIES WHILE IN THE HOSPITAL: 1. Chest x-ray on 05/21/19 reads as cardiomegaly. 2. EKG on 05/21/19 shows normal sinus rhythm with a rate of 81 first degree AV block, left ventricular hypertrophy, QTc 466, inverted T-wave in lateral leads, which was consistent with previous EKG on file. 3. Chest, abdomen, and pelvis CTA on 05/21/19 reads as no pulmonary artery filling defect to suggest pulmonary embolism with surgical change to the aorta. No intimal flap to suggest dissection. Atheromatous disease. Small bilateral pleural effusions. Cardiomegaly. Fibroid uterus. Trace amount of fluid within the pelvis. HISTORY OF PRESENT ILLNESS AND HOSPITAL COURSE: Ms. Cary is a 54-year-old female with past medical history of chronically uncontrolled hypertension, hemorrhagic CVA, diastolic CHF, and anemia, who presents to the emergency room on 05/21/19 with complaints of shortness of breath. Please see the history and physical by Dr. Elkins for complete summary of the events leading up this hospitalization. In short, the patient had been feeling short of breath and subsequently stopped taking her medications. She did not feel as though she could swallow them due to her shortness of breath. She after that became more short of breath and was immediately brought into the emergency room. In the emergency room, she was noted to have normal vitals except for a significantly elevated blood pressure on arrival of 231/100. CBC was unremarkable. CMP revealed mild hypokalemia. She was noted to have an elevated BMP and an elevated troponin of 0.04 because of concern for her blood pressure and symptoms. The patient was admitted by the hospitalist service. She was placed back on her usual medications and given p.r.n. hydralazine for elevated pressures. She did ultimately have 3 troponins, which were flat at 0.04. There was no evidence EKG changes, so I suspect that this is simply demand ischemia due to hypertension. She also had an elevated BNP though there is no evidence of fluid volume overload. So, I do not think that this represented any CHF exacerbation. The patient is feeling significantly better this morning after receiving her morning medications, blood pressure is down to 156/67, which she states is around her normal. She is anxious to return home. PHYSICAL EXAMINATION: On exam, she is alert and oriented x4. She has no focal neurological deficits. Heart has a regular rate and rhythm without murmurs, rubs, or gallops. Lungs are clear to auscultation without rhonchi, wheezes, or rubs. There is no edema. Physical exam is otherwise benign. Ms. Cary is stable for discharge today. Most recent vitals are as follows: Temp 97.6, heart rate 66, respiratory rate 16, oxygen saturation 99% on room air , blood pressure 156/67. DISCHARGE MEDICATIONS: Continued medications: 1. Amlodipine 10 mg p.o. daily. 2. Losartan 50 mg p.o. daily. 2. Metoprolol tartrate 100 mg p.o. b.i.d. 3. Dyazide 37.5/25 one cap p.o. daily. DISCHARGE PLAN: Ms. Cary will be discharged home. Activity will be as tolerated. Diet will be heart healthy. The patient has been instructed to resume her usual medications. She is on 4 hypertensives. It was stressed to her that it is crucial that she take these medications as prescribed in order to prevent further episodes of hypertensive urgency. She does verbalize understanding of these instructions. She should follow up with her cardiologists as previously recommended and she will follow up with her primary care provider in the next 4 to 7 days. At that point, she may need further titration of antihypertensive. She has been advised to return to the emergency room or nearest hospital for any worsening of symptoms, shortness of breath, lightheadedness, dizziness, chest discomfort, high fevers, chills, night sweats , loss of consciousness or any other worrisome signs or symptoms. DISCHARGE CONDITION: Stable. DISCHARGE DISPOSITION: Home. This is a summarized report of a complex medical history and hospital stay. For further details, please see the entire medical record. TIME SPENT: Approximately 40 minutes was spent on this discharge. SHIMA NELSON NP [id number]/[facility] #: [id number] MAILK
== END 2019-05-22 13:17 | disposition home or self-care (01) ==
LOC: ED 11:49 → MEDTELE 14:39
PROVIDERS: ADMIT Internal Medicine; ATTEND Internal Medicine
DX: I16.0 Hypertensive urgency (principal); I24.8 Other forms of acute ischemic heart disease; I11.0 Hypertensive heart disease with heart failure; I50.32 Chronic diastolic (congestive) heart failure; D64.9 Anemia, unspecified; I44.0 Atrioventricular block, first degree; D57.3 Sickle-cell trait; Z86.73 Personal history of transient ischemic attack (TIA), and cerebral infarction without residual deficits; I34.0 Nonrheumatic mitral (valve) insufficiency; R06.02 Shortness of breath; Z87.891 Personal history of nicotine dependence
CPT/HCPCS: 36415; 71046; 71275; 74174; 80053; 83880; 84484; 85025; 86803; 93005; 96374; 96375; 96376; 99285; A9270-GY; G0378; J1940; Q9967

== ENCOUNTER 2019-07-16 19:55 | Emergency (ER) | payer OTHER ==
--- NOTE | 2019-07-16 20:17 | ED ---
Shortness of Breath - HPI Summary HPI Summary: This pt is a 54 Y/O F presenting to [facility] with a CC of SOB on rest since 2019. She states that when she lies down it feels like there is a knot in her stomach that has been waking her up 2-3 times at night and increases her SOB. She states that she has been having increased difficulty while lying down and on exertion. She denies any fevers, N/V, headaches, chills and new edema. She states that she has no alleviating factors. She has a PMHx of CHF, Anemia, HTN, and a previous AAA. - History of Current Complaint Chief Complaint: EDShortnessOfBreath Time Seen by Provider: 07/16/19 20:06 Hx Obtained From: Patient Onset/Duration: Sudden Onset, Lasting Days - 3, Still Present, Worse Since - onset Timing: Constant Current Severity: Severe Dyspnea At: Rest Aggravating Factors: Recumbent Position, Other - exertion Alleviating Factors: Nothing Associated Signs & Symptoms: Negative - fevers, N/V, headaches, chills and new edema. - Allergy/Home Medications Allergies/Adverse Reactions: Allergies Allergy/AdvReac Type Severity Reaction Status Date / Time penicillin V Allergy Rash Verified 07/16/19 20:09 PMH/Surg Hx/FS Hx/Imm Hx Previously Healthy: Yes Endocrine/Hematology History: Reports: Hx Anemia - in [employer] Denies: Hx Diabetes, Hx Unexplained Bleeding Cardiovascular History: Reports: Hx Aneurysm, Hx Hypertension, Other Cardiovascular Problems/Disorders - Aortic dissectionw/ repair (Snow), aortic & Mitral valve insuff Denies: Hx Angina, Hx Angioplasty, Hx Auto Implanted Cardiovert Defib, Hx Cardiac Arrest, Hx Cardiomegaly, Hx Congenital Heart Disease, Hx Congestive Heart Failure, Hx Coronary Artery Disease, Hx Deep Vein Thrombosis, Hx Hypercholesterolemia, Hx Hypotension, Hx Pacemaker/ICD, Hx Peripheral Vascular Disease, Hx Rheumatic Fever, Hx Syncope, Hx Valvular Heart Disease Respiratory History: Reports: Hx Asthma Denies: Other Respiratory Problems/Disorders History: Denies: Hx Renal Disease Sensory History: Reports: Hx Contacts or Glasses, Hx Vision Problem Denies: Hx Cataracts, Hx Eye Injury, Hx Eye Prosthesis, Hx Glaucoma, Hx Macular Degeneration, Hx Deafness, Hx Hearing Aid, Hx Hearing Problem, Other Sensory Impairments Opthamlomology History: Reports: Hx Contacts or Glasses, Hx Vision Problem Denies: Hx Cataracts, Hx Eye Injury, Hx Eye Prosthesis, Hx Glaucoma, Hx Macular Degeneration, Other Sensory Impairments Neurological History: Reports: Hx Transient Ischemic Attacks (TIA), Other Neuro Impairments/Disorders - Pt to ED via EMS w/ altered mental status Denies: Hx Dementia, Hx Developmental Delay, Hx Headaches, Hx Migraine, Hx Seizures, Hx Spinal Cord Injury - Cancer History Hx Chemotherapy: No Hx Radiation Therapy: No - Surgical History Surgical History: Yes Surgery Procedure, Year, and Place: Aortic Surgery 2008 at [facility] Anesthesia Reactions: No - Immunization History Date of Tetanus Vaccine: Unk Date of Influenza Vaccine: Fall 2013 Immunizations Up to Date: Yes Infectious Disease History: No Infectious Disease History: Denies: Traveled Outside the [place] in Last 30 Days - Family History Known Family History: Positive: Hypertension, Other - CVA Negative: Cardiac Disease - Social History Occupation: Employed Full-time Lives: Alone Alcohol Use: None Hx Substance Use: No Substance Use Type: Reports: None Hx Tobacco Use: Yes Smoking Status (MU): Former Smoker Type: Cigarettes Amount Used/How Often: 1 pack per week Length of Time of Smoking/Using Tobacco: 25 Have You Smoked in the Last Year: No Review of Systems Negative: Fever, Chills Positive: Shortness Of Breath Negative: Vomiting, Nausea Negative: Edema All Other Systems Reviewed And Are Negative: Yes Physical Exam - Summary Physical Exam Summary: Constitutional: Well-developed, Well-nourished, Alert. (-) Distressed Skin: Warm, Dry HENT: Normocephalic; Atraumatic Eyes: Conjunctiva normal Neck: Musculoskeletal ROM normal neck. (-) JVD, (-) Stridor, (-) Tracheal deviation Cardio: Rhythm regular, rate normal, Heart sounds normal; Intact distal pulses; The pedal pulses are 2+ and symmetric. Radial pulses are 2+ and symmetric. (-) Murmur Pulmonary/Chest wall: Effort normal. (-) Respiratory distress, (-) Wheezes, (-) Rales Abd: Soft, (-) tenderness, (-) Distension, (-) Guarding, (-) Rebound Musculoskeletal: (-) Edema Lymph: (-) Cervical adenopathy Neuro: Alert, Oriented x3 Psych: Mood and affect Normal Triage Information Reviewed: Yes Vital Signs On Initial Exam: Initial Vitals Temp Pulse Resp Pulse Ox 97 F 61 22 94 07/16/19 19:59 07/16/19 19:59 07/16/19 19:59 07/16/19 19:59 Vital Signs Reviewed: Yes Procedures - Sedation Patient Received Moderate/Deep Sedation with Procedure: No Diagnostics - Vital Signs Vital Signs Temp Pulse Resp BP Pulse Ox 07/16/19 20:06 59 94 07/16/19 20:04 60 197/84 94 07/16/19 19:59 97 F 61 22 94 - Laboratory Result Diagrams: 07/16/19 21:00 07/16/19 21:00 Lab Statement: Any lab studies that have been ordered have been reviewed, and results considered in the medical decision making process. - Radiology CXR Radiology Interpretation Completed By: ED Physician Summary of Radiographic Findings: marked cardiomegaly, otherwise normal and clear lungs. Pending offical review. - EKG 2027 Cardiac Rate: Bradycardia - 56 BPM EKG Rhythm: Sinus Bradycardia ST Segment: Normal Ectopy: None Summary of EKG Findings: EKG at 2027 shows Sinus bradycardia at 56 BPM, LVH with IVCD and secondary repol abnrm, no ischemic changes. Interpreted by Dr. Kyle at 203207/16/2019. Re-Evaluation - Re-Evaluation First Eval Re-Evaluation Time: 22:16 Change: Improved Comment: Per nursing her O2 stat is at 98%. She expressed a desire to be discharged home. Course/Dx - Course Course Of Treatment: This pt is a 54 Y/O F presenting to [facility] with a CC of SOB on rest since 07/14/2019. She states that when she lies down it feels like there is a knot in her stomach that has been waking her up 2-3 times at night and increases her SOB. She states that she has been having increased difficulty while lying down and on exertion. She denies any fevers, N/V, headaches, chills and new edema. Her PE found no acute abnormalities. Her CXR shows marked cardiomegaly, otherwise normal and clear lungs. EKG at 2027 shows Sinus bradycardia at 56 BPM, LVH with IVCD and secondary repol abnrm, no ischemic changes. Her labratory results are within her normal values. She will be discharged home with a Dx of SOB and CHF - Diagnoses Provider Diagnoses: SOB (shortness of breath), CHF (congestive heart failure) Discharge ED - Sign-Out/Discharge Documenting (check all that apply): Patient Departure - SOB - Discharge Plan Condition: Good Disposition: HOME Patient Education Materials: Heart Failure (ED) Referrals: Virgil Muller MD [Primary Care Provider] - 1 Day Additional Instructions: Right now your tests look good and your oxygenation is perfect. However your shortness of breath could mean that your congestive heart failure is starting to cause trouble and you may need an adjustment in your medications. Your PCP or waste management specialist would be best positioned to make those changes so for now just keep your medications as they are. - Billing Disposition and Condition Condition: GOOD Disposition: Home - Attestation Statements Document Initiated by Dandy: Yes Documenting Scribe: Humberto López Provider For Whom Dandy is Documenting (Include Credential): Vidal Kyle MD Scribe Attestation: Humberto Newberry, scribed for Vidal Kyle MD on 07/17/19 at 1905. Scribe Documentation Reviewed: Yes Provider Attestation: The documentation as recorded by the Humberto sylvester accurately reflects the service I personally performed and the decisions made by , Vidal Kyle MD Status of Scribe Document: Viewed
--- OUTSIDE RECORDS SUMMARY | 2019-07-16 20:44 | XMS REPORT | Continuity of Care Document ---
:1965 External Reference #:[id number] Author Name Nehal Tejeda, ANTONIO Address [address] [place] [address] Care Team Providers Name Role Phone [facility] [place] Sleep Clinic - Sleep Disorder Care Team Information Terminal Manager Diagnostic [facility] [place] Radiology Department - Diagnostic Care Team Information Terminal Manager Radiology Virgil Muller MD - Family Care Team Information Terminal Manager [phone] Medicine Visiting Nurse Services - Home Health Care Team Information Terminal Manager Problems Active Problems Provider Date Dissection of aorta Tiago Calixto M.D. Onset: 03/14/2009 Essential hypertension Tiago Calixto M.D. Onset: 03/14/2009 Acute ill-defined cerebrovascular disease Tiago Calixto M.D. Onset: 03/14 Disorder of cardiovascular system Tiago Calixto M.D. Onset: 03/14/2009 Aortic valve disorder Tiago Calixto M.D. Onset: 10/22/2011 Mitral valve disorder Tiago Calixto M.D. Onset: 10/22/2011 Aortic valve disorder Tiago Calixto M.D. Onset: 02/25/2016 Combined systolic and diastolic dysfunction Virgil Muller M.D. Onset: Allergic rhinitis Virgil Muller M.D. Onset: 10/05/2016 Dyspnea Virgil Muller M.D. Onset: 01/04/2017 Social History Type Date Description Comments Sex Unknown Tobacco Use Start: Unknown End: Former Cigarette Smoker 1-5 age 16 - 42 Unknown Cigarettes Daily Recreational Drug Use Denies Drug Use Tobacco Use Start: Unknown End: Patient is a former smoker Unknown Smoking Status Reviewed: 07/20/17 Patient is a former smoker Allergies, Adverse Reactions, Alerts Active Allergies Reaction Severity Comments Date Penicillin 12/28/2006 Medications Active Medications SIG Qnty Indications Ordering Date Provider Blood Pressure take blood pressure 1units Virgil Kinsey 05/29/2019 Monitor daily dx I10 Tracy Muller Digital/Automatic Misc Losartan Potassium take one tablet by 30tabs Pattie Gonzáles, 10/31/2014 mouth every day LOSS MITIGATION SPECIALIST 50mg Tablets Triamterene/Hydroch Take One Tablet By 90tabs I10 Pattie Gonzáles, 12/07/2012 lorothiazide Mouth Every Day LOSS MITIGATION SPECIALIST 37.5-25mg Tablets Amlodipine Besylate Take One Tablet By 90tabs I10 Virgil Kinsey 12/07/2012 Mouth Every Day Trcay Muller 10mg Tablets Hydralazine HCL Take Three Tablets 150tabs I10 Virgil Kinsey 11/26/2011 By Mouth Every Tracy Muller 25mg Tablets Morning And Take Two Tablets By Mouth Every Night Colace one tab po bid prn 30caps 285.9 Ordoñez AKeith 03/28/2009 100mg constipation Tracy Calixto Capsules Metoprolol Tartrate Take One Tablet By 180tabs I10 Pattie Gonzáles, 2008 Mouth Twice A Day LOSS MITIGATION SPECIALIST 100mg Tablets Senna 2 QHS Unknown 8.6mg Capsules Immunizations CPT Code Status Date Vaccine Lot # [id number] Given 07/20/2017 Tdap Tetanus, W Pertussis [id number] Vital Signs Date Vital Result Comment 07/13/2019 6:49pm BP Systolic 148 mmHg BP Diastolic 90 mmHg Heart Rate 98 /min Body Temperature 97.0 F Respiratory Rate 17 /min O2 % BldC Oximetry 95 % Ra Weight 135.00 lb 06/21/2019 9:54am BP Systolic 164 mmHg BP Diastolic 80 mmHg Heart Rate 86 /min Body Temperature 98.2 F Respiratory Rate 16 /min Weight 129.00 lb Results Test Acquired Date Facility Test Result H/L Range Note Laboratory test 05/21/2019 [facility] [place] Troponin-I 0.04 ng/mL Critical high <0.03 1 finding (TnI) CBC Auto Diff 05/21/2019 [facility] White 4.8 10^3/uL Normal 3.5-10.8 Blood Count Red Blood Count 4.77 10^6/uL Normal 3.70-4.87 Hemoglobin 13.9 g/dL Normal 12.0-16.0 Hematocrit 40 % Normal 35-47 Mean Corpuscular Volume 84 fL Normal 80-97 Mean Corpuscular Hemoglobin 29 pg Normal 27-31 Mean Corpuscular HGB Conc 35 g/dL Normal 31-36 Red Cell Distribution Width 15 % Normal 10-15 Platelet Count 204 10^3/uL Normal 150-450 Mean Platelet Volume 8.0 fL Normal 7.4-10.4 Abs Neutrophils 2.5 10^3/uL Normal 1.5-7.7 Abs Lymphocytes 1.8 10^3/uL Normal 1.0-4.8 Abs Monocytes 0.4 10^3/uL Normal 0-0.8 Abs Eosinophils 0.1 10^3/uL Normal 0-0.6 Abs Basophils 0.1 10^3/uL Normal 0-0.2 Abs Nucleated RBC 0.0 10^3/uL Granulocyte % 51.5 % Lymphocyte % 36.6 % Monocyte % 8.6 % Eosinophil % 1.9 % Basophil % 1.4 % Nucleated Red Blood Cells % 0.5 Comp Metabolic Panel 05/21/2019 [facility] [place] [place] Sodium 140 mmol/L Normal 135-145 Potassium 3.3 mmol/L Low 3.5-5.0 Chloride 108 mmol/L Normal 101-111 Co2 Carbon Dioxide 26 mmol/L Normal 22-32 Anion Gap 6 mmol/L Normal 2-11 Glucose 112 mg/dL High 70-100 Blood Urea Nitrogen 24 mg/dL Normal 6-24 Creatinine 1.08 mg/dL High 0.51-0.95 BUN/Creatinine Ratio 22.2 High 8-20 Calcium 9.1 mg/dL Normal 8.6-10.3 Total Protein 6.4 g/dL Normal 6.4-8.9 Albumin 3.6 g/dL Normal 3.2-5.2 Globulin 2.8 g/dL Normal 2-4 Albumin/Globulin Ratio 1.3 Normal 1-3 Total Bilirubin 1.10 mg/dL High 0.2-1.0 Alkaline Phosphatase 58 U/L Normal 34-104 Alt 33 U/L Normal 7-52 Ast 21 U/L Normal 13-39 Egfr Non- 52.5 >60 Egfr 63.5 >60 2 Laboratory test 05/21/2019 [facility] [place] Troponin-I (TnI) 0.04 ng/mL Critical high <0.03 3 finding B-Type Natriuretic Peptide BNP > 1300 pg/mL High <=100 1 Result TnIDx:0.04 Called to [id number] at: 15:31:18 by:[id number] Read back by: [id number] Troponin-I testing on Plasma Separator Tubes (PST) has a known false positive rate of 0.20-0.40%. All positive troponins reflex immediately to secondary confirmatory testing. Using the [employer] DxI 800 Access Immunoassay systems, the 99th percentile upper reference limit was demonstrated to be < 0.03 ng/mL. 2 Because ethnic data is not always readily available, this report includes an eGFR for both -Americans and non- Americans. The National Kidney Disease Education Program (NKDEP) does not endorse the use of the MDRD equation for patients that are not between the ages of 18 and 70, are , have extremes of body size, muscle mass, or nutritional status, or are non- or non-. According to the National Kidney Foundation, irrespective of diagnosis, the stage of the disease is based on the level of kidney function: Stage Description GFR(mL/min/1.73 m(2)) 1 Kidney damage with normal or decreased GFR 90 2 Kidney damage with mild decrease in GFR 60-89 3 Moderate decrease in GFR 30-59 4 Severe decrease in GFR 15-29 5 Kidney failure <15 (or dialysis) 3 Result TnIDx:0.04 Called to [id number] at: 12:28:52 by:[id number] Read back by: [id number] Troponin-I testing on Plasma Separator Tubes (PST) has a known false positive rate of 0.20-0.40%. All positive troponins reflex immediately to secondary confirmatory testing. Using the [employer] DxI 800 Access Immunoassay systems, the 99th percentile upper reference limit was demonstrated to be < 0.03 ng/mL. Procedures Date Code Description Status 08/25/2017 [id number] Colonoscopy Completed Medical Devices Description No Information Available Encounters Type Date Location Provider Dx Diagnosis Office Visit 06/21/2019 Main Office Virgil Muller, I10 Essential ( primary) 10:10a M.D. hypertension R06.02 Shortness of breath Assessments Date Code Description Provider 07/13/2019 R06.02 Shortness of breath Nehal Tejeda, ANTONIO 07/13/2019 I10 Essential (primary) hypertension Nehal Tejeda NP 07/13/2019 I50.40 Unspecified combined systolic (congestive) Nehal Tejeda NP and diastolic (congestive) heart failure 07/13/2019 N18.9 Chronic kidney disease, unspecified Nehal Tejeda, ATNONIO 06/21/2019 I10 Essential (primary) hypertension Virgil Muller M.D. 06/21/2019 R06.02 Shortness of breath Virgil Muller M.D. Plan of Treatment Future Appointment(s):09/20/2019 9:00 am - Virgil Muller M.D. at Main [facility]/13/2019 - Nehal Tejeda, NPR06.02 Shortness of breathNew Labs:CCS- Comp Metabolic (Fma) Femal, Ordered: 07/13/19Brain Natural Peptide, Ordered: Comments:Please make an appointment with your eviscerator for as soon as they can get you in. I think your shortness of breath is from increasing problems with your heart failure. We will check some labs to make sure your electrolytes and kidneys are in a healthy place. If you have any issues with follow-up, please call the office so we can help.I10 Essential (primary) hypertensionComments:Call or return to the office if:* you get more than one blood pressure reading above 160/100 (even if only one of the numbers is high)* you feel close to passing out or actually pass out* you have new or worsening swelling in the ankles, legs, hands, or face* you develop palpiatations or funny [id number] Unspecified combined systolic (congestive) and diastolic (congestive) heart [id number] Chronic kidney disease, unspecifiedAllComments: 1. Patient has been queried about patient's goals/preferences and functional/ lifestyle goals at relevant visits. If relevant, describe: Has been discussed, noted above2. Treatment goals as explainedto the patient: see above3. Are there barriers to meeting treatment goals? Yes If Yes, please describe: Barriers include possible insurance limits, disease process, and difficulty with lifestyle changes4. Self-Management goals as described to the patient: Yes , see above As always, we strongly encourage a healthy diet and making physical activity a part of your every day life. If you have questions about how or where to start, please contact the office. Functional Status Description No Information Available Mental Status Description No Information Available Referrals Description No Information Available
--- OUTSIDE RECORDS SUMMARY | 2019-07-16 20:44 | XMS REPORT | Continuity of Care Document ---
:1965 External Reference #:[id number] Author Name Tera Campbell Care Team Providers Name Role Phone Virgil Muller MD - Family Medicine Care Team Information Rn Lactation [phone] Problems Active Problems Provider Date Aortic valve disorder Alex Sawant M.D. Onset: 02/27/2011 Dissecting Aneurysm Alex Sawant M.D. Onset: 02/27/2011 Benign essential hypertension Alex Sawant M.D. Onset: 02/27/2011 Dissection of thoracic aorta Alex Sawant M.D. Onset: 02/27/2011 Electrocardiogram abnormal Alex Sawant M.D. Onset: 02/27/2011 Malignant essential hypertension Alex Sawant M.D. Onset: 2011 Mitral valve disorder Alex Sawant M.D. Onset: 10/20/2011 Acute ill-defined cerebrovascular Alex Sawant M.D. Onset: 2011 disease Heart murmur Alex Sawant M.D. Onset: 10/20/2011 Dyspnea Alex Sawant M.D. Onset: 08/05/2012 Social History Type Date Description Comments Sex Unknown Tobacco Use Start: Unknown End: Former Cigarette Smoker pt smoked for 26 Unknown 1-5 Cigarettes Daily years-quit August 2008 ETOH Use Occasionally consumes wine Recreational Drug Use Denies Drug Use Tobacco Use Start: Unknown End: Patient is a former Unknown smoker Smoking Status Reviewed: 11/17/18 Patient is a former smoker Exercise Type/Frequency Exercises regularly Exercise Type/Frequency walking Allergies, Adverse Reactions, Alerts Active Allergies Reaction Severity Comments Date Penicillins hives 04/04/2009 Medications Active Medications SIG Qnty Indications Ordering Provider Date Hydralazine HCL take one tablet 180tabs I10 Nereida Moya NP 02/21/2019 50mg by mouth three Tablets times Blood Pressure Take BP 1-2x 1units I10 Lizet Floyd, 12/08/2017 Monitor daily N.P. Digital/Automatic Misc Amlodipine Besylate 1 by mouth every 30tabs Qutaybleonel S. 02/15/2014 day Tracy Sawant 10mg Tablets Colace 1 po bid prn 60caps Unknown 100mg Capsules Triamterene/Hydrochlo 1 po qd Unknown rothiazide 37.5-25mg Capsules Metoprolol Tartrate take 1 tablet by Unknown mouth bid 100mg Tablets History Medications Hydralazine HCL take one by mouth I10 Nereida Moya NP 02/21/2019 - 100mg three times daily 02/21/2019 Tablets Immunizations Description No Information Available Vital Signs Date Vital Result Comment 11/17/2018 3:03pm Height 64 inches 5'4" Weight 53.12 lb Clothes/shoes Heart Rate 82 /min Radial BP Systolic Sitting 180 mmHg Lue reg cuff BP Diastolic Sitting 100 mmHg Lue reg cuff BP Systolic Standing 200 mmHg Lue reg cuff BP Diastolic Standing 100 mmHg Lue reg cuff BMI (Body Mass Index) 9.1 kg/m2 Ejection Fraction 50-55% Echo 10/07/2018 09/29/2018 9:38am Height 64 inches 5'4" Weight 148.38 lb with shoes Heart Rate 84 /min BP Systolic Sitting 210 mmHg left arm BP Diastolic Sitting 90 mmHg left arm BP Systolic Standing 198 mmHg left arm BP Diastolic Standing 100 mmHg left arm BMI (Body Mass Index) 25.5 kg/m2 Results Description No Information Available Procedures Date Code Description Status 08/25/2017 [id number] Colonoscopy Completed Medical Devices Description No Information Available Encounters Type Date Location Provider Dx Diagnosis Office Visit 05/22/2019 [facility] Shima Leslie, I16.0 Hypertensive 11:03a Assoc[facility] WAITER/WAITRESS INFORMAL urgency Hospitalists I24.8 Other forms of acute ischemic heart disease Office Visit 05/21/2019 [facility] Sandrine Severo, I16.0 Hypertensive 11:03a anushka He M.D. urgency Hospitalists Assessments Date Code Description Provider 05/22/2019 I16.0 Hypertensive urgency Shima Vierax, WAITER/WAITRESS INFORMAL 05/22/2019 I24.8 Other forms of acute ischemic heart disease Shima Leslie, WAITER/WAITRESS INFORMAL 05/21/2019 I16.0 Hypertensive urgency Sandrine Elkins M.D. Plan of Treatment 11/17/2018 - Nereida Moya, NPI10 Essential (primary) hypertensionNew Medication :Hydralazine HCL 25 mg - 3 tablets by mouth twice a dayNew Xrays:US Renal Complete, Scheduled: 11/30/18New Orders:Ambulatory Blood Pressure Monitor, Scheduled: 05/02/19Follow up:f/u with me in 7 days ( Nereida Moya PRECISION DEVICES INSPECTOR/TESTER-BC) Recommendations:Get fasting labs tomorrow morning Please waste picker prescriptions today from [facility] If you develop stroke like symptoms ( slurred speech, weakness, facial droop, headache or changes in vision) call 911. If you develop dizziness or pass out call our practice.I34.0 Nonrheumatic mitral (valve ) mgklveregbhhyP83.1 Thoracic aortic aneurysm, yqqvvxipX55.1 Nonrheumatic aortic (valve) [id number] Hyperlipidemia, unspecified Functional Status Description No Information Available Mental Status Description No Information Available Referrals Description No Information Available
[2019-07-16 21:06] LABS: ABS Basophils 0.1 10^3/ul (0-0.2); ABS Eosinophils 0.1 10^3/ul (0-0.6); ABS Lymphocytes 1.5 10^3/ul (1.0-4.8); ABS Monocytes 0.5 10^3/ul (0-0.8); ABS Neutrophils 4.5 10^3/ul (1.5-7.7); Eosinophil % 1.4 %; Hematocrit 39 % (35-47); Hemoglobin 13.3 g/dL (12.0-16.0); Lymphocyte % 22.3 %; Mean Corpuscular HGB Conc 34 g/dL (31-36); Mean Corpuscular Hemoglobin 29 pg (27-31); Mean Corpuscular Volume 84 fL (80-97); Mean Platelet Volume 8.4 fL (7.4-10.4); Nucleated Red Blood Cells % 0.3; Platelet Count 221 10^3/uL (150-450); Red Blood Count 4.62 10^6 /uL (3.70-4.87); Red Cell Distribution Width 16 % (10-15); White Blood Count 6.7 10^3/uL (3.5-10.8)
[2019-07-16 21:28] LABS: Troponin I 0.05 ng/mL (<0.03)
[2019-07-16 21:42] LABS: ALT 30 U/L (7-52); AST 37 U/L (13-39); Alkaline Phosphatase 56 U/L (34-104); Blood Urea Nitrogen 26 mg/dL (6-24); EGFR African American 60.3 (>60); EGFR Non-African American 49.8 (>60); Glucose 108 mg/dL (70-100); Total Protein 6.1 g/dL (6.4-8.9)
[2019-07-16 21:54] LABS: Albumin 3.6 g/dL (3.2-5.2); Albumin/Globulin Ratio 1.4 (1-3); Anion Gap 8 mmol/L (2-11); CO2 Carbon Dioxide 23 mmol/L (22-32); Calcium 9.1 mg/dL (8.6-10.3); Chloride 111 mmol/L (101-111); Globulin 2.5 g/dL (2-4); Potassium 3.7 mmol/L (3.5-5.0); Sodium 142 mmol/L (135-145)
[2019-07-16 22:26] VITALS: BP 181/95
== END 2019-07-16 22:25 | disposition home or self-care (01) ==
LOC: ED 19:55
DX: R06.02 Shortness of breath (principal); I50.9 Heart failure, unspecified; I11.0 Hypertensive heart disease with heart failure; Z88.0 Allergy status to penicillin; D64.9 Anemia, unspecified; J45.909 Unspecified asthma, uncomplicated; Z86.73 Personal history of transient ischemic attack (TIA), and cerebral infarction without residual deficits; Z87.891 Personal history of nicotine dependence
CPT/HCPCS: 36415; 71046; 80053; 83880; 84484; 85025; 93005; 99283

== ENCOUNTER 2020-04-06 23:25 | Observation (INO) ==
[2020-04-07 02:49] LABS: ABS Basophils 0.1 10^3/ul (0-0.2); ABS Lymphocytes 1.3 10^3/ul (1.0-4.8); ABS Monocytes 0.4 10^3/ul (0-0.8); ABS Neutrophils 3.9 10^3/ul (1.5-7.7); Eosinophil % 0.7 %; Hematocrit 41 % (35-47); Hemoglobin 13.8 g/dL (12.0-16.0); Lymphocyte % 22.4 %; Mean Corpuscular HGB Conc 34 g/dL (31-36); Mean Corpuscular Hemoglobin 29 pg (27-31); Mean Corpuscular Volume 84 fL (80-97); Mean Platelet Volume 8.4 fL (7.4-10.4); Nucleated Red Blood Cells % 0.3; Platelet Count 208 10^3/uL (150-450); Red Blood Count 4.82 10^6 /uL (3.70-4.87); Red Cell Distribution Width 15 % (10-15); White Blood Count 5.7 10^3/uL (3.5-10.8)
[2020-04-07 02:57] LABS: INR 1.08 (0.82-1.09)
[2020-04-07 03:05] LABS: ALT 45 U/L (7-52); AST 46 U/L (13-39); Albumin 3.9 g/dL (3.2-5.2); Albumin/Globulin Ratio 1.3 (1-3); Alkaline Phosphatase 81 U/L (34-104); Anion Gap 8 mmol/L (2-11); BUN/Creatinine Ratio 23.3 (8-20); Blood Urea Nitrogen 28 mg/dL (6-24); CO2 Carbon Dioxide 26 mmol/L (22-32); Calcium 9.5 mg/dL (8.6-10.3); Chloride 106 mmol/L (101-111); EGFR Non-African American 46.3 (>60); Globulin 2.9 g/dL (2-4); Glucose 134 mg/dL (70-100); Potassium 3.9 mmol/L (3.5-5.0); Sodium 140 mmol/L (135-145); Total Protein 6.8 g/dL (6.4-8.9)
[2020-04-07 03:12] LABS: Troponin I 0.08 ng/mL (<0.03)
[2020-04-07] MEDS ORDERED: Furosemide 40 mg/4 ml IV VIAL IV SLOW PU ONE ×2 (04:23→10:07)
[2020-04-07 05:53] LABS: Troponin I 0.08 ng/mL (<0.03)
[2020-04-07] MEDS ORDERED: TRIAMTERENE 50 MG PO SCH (10:07)
[2020-04-07 11:35] LABS: Troponin I 0.08 ng/mL (<0.03)
[2020-04-08 07:24] LABS: Calcium 9.1 mg/dL (8.6-10.3); EGFR African American 53.9 (>60); EGFR Non-African American 44.6 (>60); Magnesium 1.5 mg/dL (1.9-2.7); Potassium 3.3 mmol/L (3.5-5.0)
[2020-04-08] MEDS ORDERED: Furosemide 40 mg/4 ml IV VIAL IV SLOW PU SCH (09:00)
[2020-04-08 11:50] VITALS: BP 153/70
[2020-04-08] MEDS ORDERED: Potassium Chlor 20 meq TAB.ER PO ONE (12:23)
[2020-04-08] MEDS ORDERED: Magnesium Sulfate 2 gm BAG 2 GM/50 ML BAG IVPB ONE (12:25)
== END 2020-04-08 14:52 | disposition home or self-care (01) ==
LOC: ED 23:25 → MEDTELE 23:25
PROVIDERS: ADMIT Internal Medicine; ATTEND Internal Medicine

== ENCOUNTER 2020-06-09 02:19 | Observation (INO) ==
[2020-06-09 03:07] LABS: ABS Basophils 0.1 10^3/ul (0-0.2); ABS Eosinophils 0.1 10^3/ul (0-0.6); ABS Monocytes 0.3 10^3/ul (0-0.8); ABS Neutrophils 4.9 10^3/ul (1.5-7.7); Eosinophil % 1.4 %; Hematocrit 36 % (35-47); Hemoglobin 12.5 g/dL (12.0-16.0); Lymphocyte % 15.7 %; Mean Corpuscular HGB Conc 35 g/dL (31-36); Mean Corpuscular Hemoglobin 29 pg (27-31); Mean Corpuscular Volume 85 fL (80-97); Mean Platelet Volume 8.5 fL (7.4-10.4); Nucleated Red Blood Cells % 0.3; Platelet Count 177 10^3/uL (150-450); Red Blood Count 4.25 10^6 /uL (3.70-4.87); Red Cell Distribution Width 15 % (10-15); White Blood Count 6.3 10^3/uL (3.5-10.8)
[2020-06-09 03:09] LABS: Urine Appearance Clear; Urine Bilirubin Negative (Negative); Urine Blood 1+ (Negative); Urine Color Straw; Urine Glucose Negative (Negative); Urine Ketones Negative (Negative); Urine Nitrite Negative (Negative); Urine Protein 2+(100 mg/dL) (Negative); Urine Specific Gravity 1.005 (1.010-1.030); Urine Urobilinogen Negative (Negative)
[2020-06-09 03:13] LABS: INR 1.16 (0.82-1.09)
[2020-06-09 03:19] LABS: Urine Bacteria 1+ (Absent); Urine Red Blood Cell Trace(0-2/hpf) (Absent); Urine Squamous Epithelial Cell Present (Absent); Urine White Blood Cell Trace(0-5/hpf) (Absent)
[2020-06-09 03:22] LABS: ALT 27 U/L (7-52); AST 30 U/L (13-39); Albumin 3.6 g/dL (3.2-5.2); Albumin/Globulin Ratio 1.2 (1-3); Alkaline Phosphatase 73 U/L (34-104); Anion Gap 9 mmol/L (2-11); Blood Urea Nitrogen 23 mg/dL (6-24); CO2 Carbon Dioxide 24 mmol/L (22-32); Calcium 8.5 mg/dL (8.6-10.3); Chloride 108 mmol/L (101-111); EGFR African American 58.8 (>60); EGFR Non-African American 48.6 (>60); Glucose 141 mg/dL (70-100); Potassium 3.6 mmol/L (3.5-5.0); Sodium 141 mmol/L (135-145); Total Protein 6.6 g/dL (6.4-8.9)
[2020-06-09 03:33] LABS: Troponin I 0.04 ng/mL (<0.03)
[2020-06-09] MEDS ORDERED: Furosemide 20 mg/2 ml IV VIAL IV SLOW PU ONE (04:30)
[2020-06-09] MEDS ORDERED: Iodixanol (CONTRAST) 320 MG/ML 100 ML SDV IV ONE (04:34)
[2020-06-09 06:35] LABS: Troponin I 0.04 ng/mL (<0.03)
[2020-06-09] MEDS ORDERED: Nitro 2% OINT (Nitroglycerin) 1 INCH/PAK TOPICAL ONE (06:42)
[2020-06-09] MEDS: Furosemide 40 mg/4 ml IV VIAL IV SLOW PU SCH ×2 (09:06→17:27)
[2020-06-09] MEDS ORDERED: Nitro Patch/OINT Remove PATCH TOPICAL ONE (13:00)
[2020-06-10 06:59] LABS: ABS Basophils 0.1 10^3/ul (0-0.2); ABS Eosinophils 0.2 10^3/ul (0-0.6); ABS Lymphocytes 2.2 10^3/ul (1.0-4.8); ABS Monocytes 0.5 10^3/ul (0-0.8); ABS Neutrophils 3.2 10^3/ul (1.5-7.7); Eosinophil % 3.6 %; Hematocrit 40 % (35-47); Hemoglobin 13.6 g/dL (12.0-16.0); Lymphocyte % 35.2 %; Mean Corpuscular HGB Conc 34 g/dL (31-36); Mean Corpuscular Hemoglobin 29 pg (27-31); Mean Corpuscular Volume 84 fL (80-97); Mean Platelet Volume 8.8 fL (7.4-10.4); Nucleated Red Blood Cells % 0.2; Platelet Count 190 10^3/uL (150-450); Red Blood Count 4.72 10^6 /uL (3.70-4.87); Red Cell Distribution Width 15 % (10-15); White Blood Count 6.1 10^3/uL (3.5-10.8)
[2020-06-10 07:17] LABS: BUN/Creatinine Ratio 20.1 (8-20); Calcium 8.8 mg/dL (8.6-10.3); EGFR African American 45.4 (>60); EGFR Non-African American 37.5 (>60); Potassium 3.2 mmol/L (3.5-5.0)
[2020-06-10 07:55] VITALS: BP 168/63
[2020-06-10] MEDS: Furosemide 40 mg/4 ml IV VIAL IV SLOW PU SCH (08:21)
[2020-06-10] MEDS ORDERED: Potassium Chlor 20 meq TAB.ER PO ONE (09:00)
== END 2020-06-10 11:22 | disposition home or self-care (01) | DRG 199 ==
LOC: ED 02:19 → INTOOBSV 05:27 → EDHOLD 05:27 → MEDTELE 13:59
PROVIDERS: ADMIT Internal Medicine; ATTEND Internal Medicine

== ENCOUNTER 2021-10-29 13:29 | Inpatient (IN) ==
[2021-10-29] MEDS ORDERED: LORazepam 2 mg VIAL 1 ml ONE ×2 (13:42→14:19)
[2021-10-29] MEDS ORDERED: Lorazepam PYXIS KEY PRN ×2 (13:43→14:13)
[2021-10-29 14:06] LABS: ABS Basophils 0.1 10^3/ul (0-0.2); ABS Lymphocytes 2.5 10^3/ul (1.0-4.8); ABS Monocytes 0.6 10^3/ul (0-0.8); ABS Neutrophils 5.4 10^3/ul (1.5-7.7); Eosinophil % 0.5 %; Hematocrit 42 % (35-47); Hemoglobin 14.4 g/dL (12.0-16.0); Lymphocyte % 29.2 %; Mean Corpuscular HGB Conc 34 g/dL (31-36); Mean Corpuscular Hemoglobin 28 pg (27-31); Mean Corpuscular Volume 83 fL (80-97); Mean Platelet Volume 8.3 fL (7.4-10.4); Nucleated Red Blood Cells % 0.1; Platelet Count 198 10^3/uL (150-450); Red Blood Count 5.06 10^6 /uL (3.70-4.87); Red Cell Distribution Width 14 % (10-15); White Blood Count 8.7 10^3/uL (3.5-10.8)
[2021-10-29] MEDS ORDERED: Midazolam 10 mg/10 ml VIAL 1 mg/ml 10 ml VIAL (10 mg) ONE ×2 (14:26→15:26)
[2021-10-29] MEDS ORDERED: Succinylcholine 200 mg VIAL 20 mg/ml 10 ml VIAL (200 mg) ONE (14:32)
[2021-10-29] MEDS ORDERED: Etomidate 40 mg/20 ml (2 MG/ML) 20 ml VIAL (40 mg) ONE (14:32)
[2021-10-29] MEDS ORDERED: Midazolam 5 mg/5 ml VIAL 1 mg/ml 5 ml VIAL (5 mg) IV SLOW PU ONE ×2 (14:47→14:59)
[2021-10-29 14:56] LABS: Calcium 9.9 mg/dL (8.6-10.3); eGFR CKD-EPI 50.9 (>60)
[2021-10-29] MEDS ORDERED: Midazolam 50 MG VIAL IV DRIP 50 ML IV SCH (15:00)
[2021-10-29] MEDS ORDERED: niCARdipine 0.1MG/ML IVPREMIX 20 MG/200 ML BAG IV SCH (15:00)
[2021-10-29 15:11] LABS: Potassium 3.3 mmol/L (3.5-5.0)
[2021-10-29] MEDS ORDERED: Iohexol 350 (CONTRAST) 500 ML MDV IV ONE (15:25)
[2021-10-29] MEDS ORDERED: fentaNYL 100 mcg/2 ml 50 MCG/ML VIAL ONE ×2 (15:26→16:28)
[2021-10-29 16:55] LABS: Urine Appearance Clear; Urine Bilirubin Negative (Negative); Urine Blood 1+ (Negative); Urine Color Straw; Urine Glucose Negative (Negative); Urine Ketones Trace (Negative); Urine Nitrite Negative (Negative); Urine Protein 2+(100 mg/dL) (Negative); Urine Urobilinogen Negative (Negative)
[2021-10-29 16:58] LABS: Urine Bacteria Absent (Absent); Urine Red Blood Cell Trace(0-2/hpf) (Absent); Urine White Blood Cell Absent (Absent)
[2021-10-29] MEDS ORDERED: fentaNYL INFUSION 50 mcg/mL VL 2,500 MCG/50 ML VIAL IV SCH (17:00)
[2021-10-29] MEDS ORDERED: Propofol 10 mg/ml 100 ML BTL 100 ML IV SCH (17:00)
[2021-10-29 17:13] LABS: TSH Ultra Thyroid Stim Horm 4.54 mcIU/mL (0.34-5.60)
[2021-10-29 17:58] LABS: HDL Cholesterol 70.1 mg/dL
[2021-10-29] MEDS ORDERED: KCL 20 MEQ/100 ML IVPREMIX 20 MEQ/100 ML BAG IV SCH (18:00)
[2021-10-29] MEDS ORDERED: Pantoprazole VIAL 40 MG VIAL IV SCH (18:00)
[2021-10-29] MEDS ORDERED: NS 0.9% 1000 ml BAG 1,000 ML IV SCH (18:00)
[2021-10-29] MEDS ORDERED: Chlorhexidine MOUTHWASH 0.12% 15 ML UDC SWISH SPIT SCH (18:00)
[2021-10-29] MEDS: Propofol 10 mg/ml 100 ML BTL 100 ML IV SCH (18:11)
[2021-10-29 18:55] LABS: Urine Benzodiazepine Screen Presumptive Positive (None Detect); Urine Cannabinoids Screen None Detected (None Detect); Urine Opiates Screen None Detected (None Detect)
[2021-10-29 19:16] LABS: Albumin 4.5 g/dL (3.2-5.2); Albumin/Globulin Ratio 1.4 (1-3); Globulin 3.2 g/dL (2-4); Total Bilirubin 1.2 mg/dL (0.2-1.0); Total Protein 7.7 g/dL (6.4-8.9)
[2021-10-29 19:48] LABS: Direct Bilirubin 0.1 mg/dL (0.03-0.18); Indirect Bilirubin 1.1 mg/dL (0.3-1.0)
[2021-10-29 19:54] LABS: Magnesium 1.7 mg/dL (1.9-2.7)
[2021-10-29] MEDS: LORazepam 2 mg VIAL 1 ml IV PUSH ONE ×2 (19:55)
[2021-10-29] MEDS: Pantoprazole VIAL 40 MG VIAL IV SCH (20:21)
[2021-10-29] MEDS: KCL 20 MEQ/100 ML IVPREMIX 20 MEQ/100 ML BAG IV SCH ×2 (20:21→22:38)
[2021-10-29] MEDS: Chlorhexidine MOUTHWASH 0.12% 15 ML UDC SWISH SPIT SCH (22:01)
[2021-10-30] MEDS: Chlorhexidine MOUTHWASH 0.12% 15 ML UDC SWISH SPIT SCH ×3 (00:45→07:51)
[2021-10-30] MEDS: KCL 20 MEQ/100 ML IVPREMIX 20 MEQ/100 ML BAG IV SCH (00:45)
[2021-10-30] MEDS: Propofol 10 mg/ml 100 ML BTL 100 ML IV SCH (00:47)
[2021-10-30 05:15] LABS: ABS Lymphocytes 1.1 10^3/ul (1.0-4.8); ABS Monocytes 1.1 10^3/ul (0-0.8); ABS Neutrophils 6.7 10^3/ul (1.5-7.7); Eosinophil % 0.1 %; Hematocrit 39 % (35-47); Hemoglobin 13.1 g/dL (12.0-16.0); Mean Corpuscular HGB Conc 34 g/dL (31-36); Mean Corpuscular Hemoglobin 29 pg (27-31); Mean Corpuscular Volume 84 fL (80-97); Nucleated Red Blood Cells % 0.1; Platelet Count 170 10^3/uL (150-450); Red Blood Count 4.59 10^6 /uL (3.70-4.87); Red Cell Distribution Width 14 % (10-15); White Blood Count 8.9 10^3/uL (3.5-10.8)
[2021-10-30 05:42] LABS: Calcium 8.7 mg/dL (8.6-10.3); Magnesium 1.8 mg/dL (1.9-2.7); Phosphorus 3.3 mg/dL (2.5-5.0); Potassium 4.5 mmol/L (3.5-5.0); eGFR CKD-EPI 66.1 (>60)
[2021-10-30] MEDS: Acetaminophen IV 1 GM/100ML 100 ML IV SCH (05:51)
[2021-10-30] MEDS ORDERED: Magnesium Sulfate 2 gm BAG 2 GM/50 ML BAG IVPB ONE (07:39)
[2021-10-30] MEDS: niCARdipine 0.1MG/ML IVPREMIX 20 MG/200 ML BAG IV SCH ×3 (07:50→14:46)
[2021-10-30] MEDS ORDERED: Aspirin EC 81 mg TAB.EC (enteric coated) PO SCH (12:00)
[2021-10-30] MEDS ORDERED: niCARdipine 0.1MG/ML IVPREMIX 20 MG/200 ML BAG IV SCH (17:54)
[2021-10-30] MEDS: Pantoprazole VIAL 40 MG VIAL IV SCH (22:57)
[2021-10-31 06:45] LABS: Calcium 9.3 mg/dL (8.6-10.3); Potassium 3.8 mmol/L (3.5-5.0); eGFR CKD-EPI 81.7 (>60)
[2021-10-31] MEDS: LORazepam 2 mg VIAL 1 ml IV PUSH ONE ×2 (07:01)
[2021-10-31] MEDS: Acetaminophen IV 1 GM/100ML 100 ML IV SCH (07:02)
[2021-10-31] MEDS: Chlorhexidine MOUTHWASH 0.12% 15 ML UDC SWISH SPIT SCH (07:02)
[2021-10-31 17:23] VITALS: BP 129/84
== END 2021-10-31 17:00 | disposition home health service (06) | DRG 52 ==
LOC: EDBD → EDUNIT# → ED 13:29 → ICU 14:07 → EDHOLD 16:51 → ICU 20:16
PROVIDERS: ADMIT Student in an Organized Health Care Education/Training Program; ATTEND Internal Medicine